=== PATIENT | female | born 1980 | race Caucasian/White ===

== ENCOUNTER 2017-11-14 05:32 | Day surgery (SDC) | payer OTHER ==
[~2017-11-14] VITALS: Ht 157.5 cm; Wt 108.0 kg
--- NOTE | ~2017-11-14 | O ---
[facility] [place] [address] OPERATIVE REPORT Name: ARNOL RAMOS Room #: DEP [facility].#: [id number] Admission: 11/14/17 Attend Phys: Clau Gibson MD, Discharge: 11/14/17 Date of : 84 Report #: [id number] THIS REPORT FOR: //name// CC: FAM unknown Clau Gibson DATE OF SERVICE: 11/14/2017 PREOPERATIVE DIAGNOSES: 1. Necrotic right breast wound. 2. Morbid obesity. POSTOPERATIVE DIAGNOSES: 1. Necrotic right breast wound. 2. Morbid obesity. PROCEDURE: Excisional debridement of skin, subcutaneous tissue, and muscle/fascia of a necrotic right breast wound ultimately measuring 6 x 4 cm in dimension (24 square cm). This involved unroofing of a subcutaneous abscess with drainage. Preoperative wound measurements were 3 x 1 cm in dimension with surrounding necrosis. SURGEON: Clau Gibson MD [employer]OURCE PLANNER: Frances Hayden MS3 ANESTHESIA: General endotracheal anesthesia. ESTIMATED BLOOD LOSS: Minimal (less than 5 mL). COMPLICATIONS: None appreciated. SPECIMENS: All excised tissue to pathology. INDICATIONS: The patient is a 37-year-old obese female who presented approximately a week and a half ago with a longstanding history of a large right breast cyst that had become markedly enlarged, erythematous, and painful with spontaneous drainage. The patient underwent incision and drainage of a breast abscess at that time with packing and discharged home the next day. Unfortunately, the patient did not get appropriate wound care followup and presented back to my office yesterday with recurrent swelling and erythema as well as dusky skin edges consistent with periwound necrosis that requires repeat intervention today. DESCRIPTION OF PROCEDURE: After explaining the risks, benefits and alternatives of the procedure with the patient in the preoperative holding area [address] [address] OPERATIVE REPORT Name: RICHARDARNOL Room #: DEP [facility] David#: [id number] Admission: 11/14/17 Attend Phys: Clau Gibson MD, Discharge: 11/14/17 Date of : 84 Report #: [id number] and obtaining written consent, the patient was brought to the operating room and placed supine on the operating room table. After conducting a thorough timeout procedure, verifying correct patient and procedure, the patient was given general endotracheal anesthesia. Once adequate anesthesia was obtained, her SCDs were hooked up to pneumatic compression device. She was given a preoperative dose of antibiotics in line with the SCIP protocol. The patient's right breast wound was prepped and draped in standard surgical sterile fashion. Electrocautery was used to debride all nonviable skin and subcutaneous tissues from the right breast wound in question. Upon doing so, the wound was enlarged to its final dimensions of 6 x 4 cm in dimension to arrive at healthy bleeding tissue throughout. This allowed me to unroof a large abscess cavity, which was fully evacuated. I debrided all the way down to the bed of the wound, which took me to the pectoralis fascia, which was debrided as it was necrotic as well. Hemostasis was assured with electrocautery. A pulse steam shovelman was now used to fully clean out the entire cavity. Final inspection showed complete hemostasis with no purulent material nor was there any remaining necrotic tissue or slough. The wound was then packed tightly with sterile saline soaked Anila wrap and dressed with ABDs and Medipore tape. At the end of the procedure, all instrument, needle, and sponge counts were correct. The patient tolerated the procedure without incident, was awakened in the operating room, and transitioned to the recovery room in stable condition with no apparent complications. She will have close wound care followup as directed by the [facility] wound care service who has already established care with this patient. <ELECTRONICALLY SIGNED> By: Clau Gibson MD, FACS 11/18/17 [id number] [id number] Clau Gibson MD, FACS /nt
[~2017-11-14 05:32] MED LIST: DOXYCYCLINE 10100 M1 PO; NORCO 5-325 TA1 EACH PO
[2017-11-14 06:40] VITALS: BP 133/75
[2017-11-14 08:35] VITALS: BP 133/75
== END 2017-11-14 09:30 | disposition home or self-care (01) ==
LOC: OR 05:32 → TBA 05:32 → OR 09:30
DX: T81.89XA Other complications of procedures, not elsewhere classified, initial encounter (principal); S21.001A Unspecified open wound of right breast, initial encounter; N64.1 Fat necrosis of breast; E66.01 Morbid (severe) obesity due to excess calories; Z98.890 Other specified postprocedural states; Z79.891 Long term (current) use of opiate analgesic; Z68.41 Body mass index [BMI] 40.0-44.9, adult; X58.XXXA Exposure to other specified factors, initial encounter; Y93.89 Activity, other specified; Y92.89 Other specified places as the place of occurrence of the external cause; Y99.8 Other external cause status
CPT/HCPCS: 50010; 50101; 50386; 62110; 62900; 70005

== ENCOUNTER → 2017-11-19 | Outpatient (CLI) | payer OTHER | LOC: HYPER 06:50 | DX: T81.31XA Disruption of external operation (surgical) wound, not elsewhere classified, initial encounter (principal); N61.1 Abscess of the breast and nipple; L03.313 Cellulitis of chest wall; Z48.817 Encounter for surgical aftercare following surgery on the skin and subcutaneous tissue; Y83.8 Other surgical procedures as the cause of abnormal reaction of the patient, or of later complication, without mention of misadventure at the time of the procedure ==

== ENCOUNTER → 2017-11-26 | Outpatient (CLI) | payer OTHER | LOC: HYPER 06:51 | DX: T81.31XD Disruption of external operation (surgical) wound, not elsewhere classified, subsequent encounter (principal); Y83.8 Other surgical procedures as the cause of abnormal reaction of the patient, or of later complication, without mention of misadventure at the time of the procedure ==

== ENCOUNTER → 2017-12-10 | Outpatient (CLI) | payer OTHER | LOC: HYPER 12-03 06:53 | DX: T81.31XD Disruption of external operation (surgical) wound, not elsewhere classified, subsequent encounter (principal); N61.1 Abscess of the breast and nipple; Y83.8 Other surgical procedures as the cause of abnormal reaction of the patient, or of later complication, without mention of misadventure at the time of the procedure ==

== ENCOUNTER → 2017-12-18 | Outpatient (CLI) | payer OTHER | LOC: HYPER 12-17 07:09 | DX: T81.31XD Disruption of external operation (surgical) wound, not elsewhere classified, subsequent encounter (principal); N61.1 Abscess of the breast and nipple; Z48.817 Encounter for surgical aftercare following surgery on the skin and subcutaneous tissue; Y83.8 Other surgical procedures as the cause of abnormal reaction of the patient, or of later complication, without mention of misadventure at the time of the procedure ==

== ENCOUNTER → 2017-12-25 | Outpatient (CLI) | payer OTHER | LOC: HYPER 06:49 | DX: T81.31XD Disruption of external operation (surgical) wound, not elsewhere classified, subsequent encounter (principal); N61.1 Abscess of the breast and nipple; Y83.8 Other surgical procedures as the cause of abnormal reaction of the patient, or of later complication, without mention of misadventure at the time of the procedure ==

== ENCOUNTER → 2018-01-08 | Outpatient (CLI) | payer OTHER | LOC: HYPER 07:07 | DX: T81.31XD Disruption of external operation (surgical) wound, not elsewhere classified, subsequent encounter (principal); Z48.817 Encounter for surgical aftercare following surgery on the skin and subcutaneous tissue; Y83.8 Other surgical procedures as the cause of abnormal reaction of the patient, or of later complication, without mention of misadventure at the time of the procedure ==

== ENCOUNTER → 2018-02-19 | Outpatient (CLI) | payer OTHER | LOC: HYPER 06:51 | DX: T81.31XD Disruption of external operation (surgical) wound, not elsewhere classified, subsequent encounter (principal); N61.1 Abscess of the breast and nipple; L03.313 Cellulitis of chest wall; Y83.8 Other surgical procedures as the cause of abnormal reaction of the patient, or of later complication, without mention of misadventure at the time of the procedure ==

== ENCOUNTER → 2018-03-06 | Outpatient (CLI) | payer OTHER | LOC: HYPER 06:54 | DX: T81.31XD Disruption of external operation (surgical) wound, not elsewhere classified, subsequent encounter (principal); N61.1 Abscess of the breast and nipple; L03.313 Cellulitis of chest wall; Z48.817 Encounter for surgical aftercare following surgery on the skin and subcutaneous tissue; Y83.8 Other surgical procedures as the cause of abnormal reaction of the patient, or of later complication, without mention of misadventure at the time of the procedure ==

== ENCOUNTER → 2018-03-19 | Outpatient (CLI) | payer OTHER | LOC: HYPER 07:10 | DX: T81.31XD Disruption of external operation (surgical) wound, not elsewhere classified, subsequent encounter (principal); Y83.8 Other surgical procedures as the cause of abnormal reaction of the patient, or of later complication, without mention of misadventure at the time of the procedure ==

== ENCOUNTER → 2018-04-21 | Outpatient (CLI) | payer OTHER | LOC: HYPER 06:55 | DX: T81.31XD Disruption of external operation (surgical) wound, not elsewhere classified, subsequent encounter (principal); N61.1 Abscess of the breast and nipple; L03.313 Cellulitis of chest wall; Y83.8 Other surgical procedures as the cause of abnormal reaction of the patient, or of later complication, without mention of misadventure at the time of the procedure ==

== ENCOUNTER → 2018-04-30 | Outpatient (CLI) | payer OTHER | LOC: HYPER 06:42 | DX: T81.31XD Disruption of external operation (surgical) wound, not elsewhere classified, subsequent encounter (principal); N61.1 Abscess of the breast and nipple; L03.313 Cellulitis of chest wall; Z68.41 Body mass index [BMI] 40.0-44.9, adult; Y83.8 Other surgical procedures as the cause of abnormal reaction of the patient, or of later complication, without mention of misadventure at the time of the procedure ==